=== PATIENT | female | born 1945 | race Caucasian/White ===

== ENCOUNTER 2018-05-28 09:01 | Outpatient (REF) | payer MEDICARE, BC, SELFPAY ==
[2018-05-28 12:35] LABS: Bilirubin Negative (Negative); Blood Moderate (Negative); Clarity Sl Cloudy; Glucose Negative (Negative); Ketones Negative (Negative); Leukocyte Esterase Small (Negative); Nitrite Negative (Negative); Urobilinogen 0.2 EU/dL (Up TO 0.2); pH 5.5 (5-8)
[2018-05-28 12:50] LABS: C & S Indicated? No/Sq. Contamination; Epithelial Cells Many HPF (Negative)
== END 2018-05-28 09:21 ==
LOC: LBN 09:01
PROVIDERS: PCP Nurse Practitioner Family; Visit Provider Nurse Practitioner Family
DX: R31.9 Hematuria, unspecified (principal)
CPT/HCPCS: 81003; 81015

== ENCOUNTER 2018-06-14 11:15 | Outpatient (CLI) | payer MEDICARE, BC, SELFPAY ==
[2018-06-14 11:58] LABS: Bilirubin Negative (Negative); Blood Small (Negative); Clarity Clear; Glucose Negative (Negative); Ketones Negative (Negative); Leukocyte Esterase Negative (Negative); Nitrite Negative (Negative); Specific Gravity 1.015 (1.005-1.025); Urobilinogen 0.2 EU/dL (Up TO 0.2); pH 6.5 (5-8)
[2018-06-14 12:16] LABS: Bacteria Few HPF (Negative); C & S Indicated? No/Sq. Contamination; Casts Negative LPF (Negative); Crystals Negative HPF (Negative); Epithelial Cells Moderate HPF (Negative); Mucus Negative (Negative); WBC 0-2 HPF (0-5)
== END 2018-06-14 11:35 ==
PROVIDERS: PCP Nurse Practitioner Family; Visit Provider Nurse Practitioner Family
DX: R31.9 Hematuria, unspecified (principal)
CPT/HCPCS: 81003; 81015

== ENCOUNTER 2018-06-26 00:39 | Outpatient (CLI) | payer MEDICARE, BC, SELFPAY ==
--- NOTE | 2018-06-26 11:59 | DI.CT_ITS ---
SYMPTOMS/DIAGNOSIS: MICROSCOPIC HEMATURIA, FURTHER EVALUATION, R31.29 CT SCAN OF THE ABDOMEN AND PELVIS; CT scan of the abdomen and pelvis was performed according to the CT urogram protocol. No priors for comparison. Noncontrast examination was performed. No nephrolithiasis, no ureterolithiasis is seen. No bladder stones are present. The gallbladder is negative by CT criteria. Following contrast administration, venous imaging was performed. There is mild scarring seen in the lung bases. The liver is normal in size. No suspicious hepatic masses are seen. The portal and superior mesenteric veins are patent. The gallbladder is negative. No biliary ductal dilatation is present. The pancreas, spleen and adrenal glands are unremarkable. The kidneys show normal and symmetric enhancement. No evidence of a solid renal mass or obstruction is identified. The urinary bladder is intact. The reproductive organs are grossly unremarkable. There is atherosclerosis of the abdominal aorta, but no aneurysmal dilatation is present. No significant abdominal or pelvic adenopathy , ascites or pneumoperitoneum is present. Note is made of a small fat- containing umbilical hernia. The bowel shows no evidence of obstruction or inflammation. There is a normal appendix visualized. There does appear to be a small hiatal hernia present. Degenerative changes are seen in the spine. [id number] images through the renal collecting system were performed. The distal left ureter is not visualized, but no obstructing mass or calculus is identified. The left ureter is of normal caliber and there is normal enhancement of the left kidney noted. The urinary bladder is intact. No filling defects are appreciated. IMPRESSION: 1. No evidence of nephrolithiasis, hydronephrosis or renal mass. 2. Nonvisualization of the distal left ureter, but no evidence of ureteral mass or calculus and no evidence of dilatation of the left renal collecting system. 3. No evidence of a bladder mass or calculus.
[2018-06-26 12:32] LABS: CREATININE 0.86 mg/dL (0.55-1.02)
[2018-06-26] MEDS: Omnipaque 350 MG/ML 100 ML BTL IJ (13:26)
== END 2018-06-26 00:59 ==
PROVIDERS: PCP Nurse Practitioner Family; Visit Provider Nurse Practitioner Family
DX: R31.29 Other microscopic hematuria (principal)
CPT/HCPCS: 36415; 74178; 82565; J3490

== ENCOUNTER → 2018-06-28 14:52 | Outpatient (BNVA) | payer MEDICARE, BC, SELFPAY | PROVIDERS: PCP Nurse Practitioner Family; Visit Provider Nurse Practitioner Gerontology | DX: R31.29 Other microscopic hematuria (principal); I10 Essential (primary) hypertension | CPT/HCPCS: 99203; 99214 ==

== ENCOUNTER → 2018-08-06 09:26 | Outpatient (BNVA) | payer MEDICARE, BC, SELFPAY | PROVIDERS: PCP Nurse Practitioner Family; Visit Provider Urology | DX: R69 Illness, unspecified (principal) ==

== ENCOUNTER 2018-08-23 07:26 | Day surgery (SDC) | payer MEDICARE, BC, SELFPAY ==
[2018-08-23 07:48] VITALS: BP 123/88; PULSE 61; RESP 16; TEMP 36.4; O2SAT 99
[2018-08-23] MEDS: Sulfameth/Trimeth DS TAB 1 TAB PO (08:12)
[2018-08-23] MEDS: Lactated Ringers 1,000 ML 80 ML IV (08:12)
--- NOTE | 2018-08-23 08:37 | W.PM.HP.N ---
Date of service: 08/23/18 Time of Service: 08:37 Assessment and Plan (1) Microscopic hematuria: Current visit: No Status: Chronic For cystoscopy and retrograde pyelogram History of Present Illness Chief Complaint: microscopic hematuria Narrative: This is a 73 year old woman who has a finding of microscopic hematuria. Her CT urogram showed no upper tract disease, but her ureters did not completely fill. She presents for cystoscopy with retrograde pyelogram to complete her hematuria workup. Review of Systems Constitutional Denies chills and Denies fever(s) Eyes Denies loss of vision Cardiovascular Denies chest pain, Denies syncope and Denies irregular heart rhythm Gastrointestinal Denies nausea and Denies vomiting Musculoskeletal Reports arthralgias Neurologic Denies syncope and Denies loss of vision Hematologic/Lymphatic Denies easy bleeding and Denies easy bruising PFSH Medical History Microscopic hematuria (Chronic) Hyperlipidemia, unspecified (Chronic) Migraine (Chronic) Hormone replacement therapy (HRT) (Chronic 10/20/11) Hypothyroidism, unspecified (Chronic 10/20/11) Essential hypertension (Chronic) Atopic dermatitis (Chronic 10/20/11) Calculus of right kidney (Resolved 06/02/16) Atopic dermatitis HTN (hypertension) Hormone replacement therapy (HRT) Hyperlipidemia Hypothyroidism Migraine Social History adopted: No caregiver/support person: No foster care: No number of children: 1 current occupational status: employed 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 [employer] pets and animals: Yes pets and animals: cat(s) frequency: daily duration: > 90 minutes/day Smoking/Tobacco Use Status: Never alcohol intake: never substance use type: does not use Meds Home Medications Medication Instructions Recorded Confirmed Type triamcinolone acetonide 1 sandrita TOPICAL TID PRN #1 script 09/11/13 08/23/18 History Atorvastatin Calcium 10 mg PO DAILY #90 tab-cap 11/20/17 08/23/18 Clinic levothyroxine 100 mcg PO DAILY #90 tab-cap 11/20/17 08/23/18 Rx promethazine 25 mg RC Q6H PRN #30 supp 11/27/17 08/23/18 Rx indomethacin [Indocin] 25 mg RC DAILY PRN #30 supp.rect 02/08/18 08/23/18 History amlodipine [Norvasc] 5 mg PO HS 08/16/18 08/23/18 History conjugated estrogens [Premarin] 0.3 mg PO .MON, MON, MON,Mon08/16/18 08/23/18 History medroxyprogesterone 2.5 mg PO .MON, MON, MON,Mon08/16/18 08/23/18 History Allergies Allergy/AdvReac Type Severity Reaction Status Date / Time No Known Allergies Allergy Unverified 08/23/18 06:52 Results Last Vital Signs Temp 36.4 C L 08/23/18 07:48 Pulse 61 08/23/18 07:48 Resp 16 08/23/18 07:48 BP 123/88 08/23/18 07:48 Pulse Ox 99 08/23/18 07:48
--- NOTE | 2018-08-23 08:39 | DI.RAD_ITS ---
SYMPTOM/DIAGNOSIS: HEMATURIA OR RETROGRADE: Fluoroscopy Time: 36.8 seconds The images submitted from the OR demonstrate a bilateral retrograde examination carried out by Dr. Porter. Contrast material is identified in the ureters and in the collecting system of both kidneys. No gross abnormality or gross obstruction is demonstrated. Please see Dr. Porter's procedure report for further information.
[2018-08-23] MEDS: Lidocaine 2% Jelly 6 ML SYR (09:07)
[2018-08-23] MEDS: Omnipaque 300 MG/ML 50 ML BTL (09:12)
--- NOTE | 2018-08-23 09:16 | W.PM.DSUDISC ---
Discharge Plan Disposition Patient Disposition: HOME Condition: Stable Discharge Details Reason For Visit: hematuria Attending Provider: Juan Porter Primary Care Provider: Silvana Srinivasan Home Meds and New Rx's Prescriptions: No Action triamcinolone acetonide 15 GM cream 1 sandrita Topical TID PRNQty: 1 RF: 5 Atorvastatin Calcium 10 MG tablet 10 mg PO DAILY Qty: 90 RF: 3 levothyroxine 100 MCG tablet 100 mcg PO DAILY Qty: 90 RF: 3 promethazine 25 MG suppository 25 mg RC Q6H PRN Qty: 30 RF: 6 Indocin 50 MG suppository 25 mg RC DAILY PRNQty: 30 RF: 3 amlodipine [Norvasc] 5 mg tablet 5 mg PO HS RF: 0 medroxyprogesterone 2.5 MG tablet 2.5 mg PO .MON, MON, MON,SUN RF: 0 Premarin 0.3 MG tablet 0.3 mg PO .MON, MON, MON,SUN RF: 0 Discharge Instructions Additional Instructions: F/U yearly for urinalysis (can be at our office or with PCP) Stand Alone Forms: [facility] ([facility]) Activity:: Activity as Tolerated Diet:: As Tolerated Discharge Orders Discharge Orders: Discharge Order (Routine); Ordered 08/23/18 Ordered By: Juan Porter Discharge Data Discharge Date/Time-TO BE ENTERED AT DEPARTURE: 08/23/18 10:05 DS: Diagnosis Discharge Diagnosis (1) Microscopic hematuria: Status: Chronic
[2018-08-23 09:50] VITALS: BP 130/82; PULSE 60; RESP 18; TEMP 37; O2SAT 98
[2018-08-23] MEDS: Phenazopyridine 200 MG TAB PO (10:00)
--- NOTE | 2018-08-23 17:43 | ROE_ITS ---
DATE OF OPERATION: August 23, 2018 PREOPERATIVE DIAGNOSIS: Microscopic hematuria. POSTOPERATIVE DIAGNOSIS: Microscopic hematuria. PROCEDURE: Cystoscopy, bilateral retrograde pyelogram. SURGEON: Juan Porter M.D. ANESTHESIA: MAC with local. COMPLICATIONS: None. FINDINGS: No significant uropathology. HISTORY: This is a 73-year-old woman who has a finding of microscopic hematuria. She had a CT scan with contrast but the distal left ureter did not fill completely. No significant pathology was demon strated in the upper tracts. She presents for cystoscopy with retrograde pyelogram to complete her h ematuria workup. OPERATIVE REPORT: The patient was brought to the Operating Room on 08/23/18. She was given monitore d anesthesia care and placed in the dorsal lithotomy position. Her genitalia was prepped and draped. A 22 Kazakh rigid cystoscope was passed through the urethra into the bladder. The urethra and bladde r were inspected using the 30-degree lens. Both ureteral orifices appeared normal. Each orifice was cannulated with a 6 Kazakh access catheter. Retrograde films were obtained by injecting Omnipaque through the access catheter under fluoroscopi c guidance. No filling defects were seen in either ureter or collecting system. Both sides drained promptly on 5 -minute drainage film. The remainder of the bladder was inspected using both a 30- and a 70-degree lens. No papillary or no dular lesions were seen. No stones were seen. Based on this examination, there is no significant uropathology identified. Our current recommendati on is a repeat urinalysis yearly and a repeat workup in three to five years if the hematuria persists . The patient tolerated this procedure well, with no complications.
== END 2018-08-23 10:05 | disposition home or self-care (01) ==
PROVIDERS: PCP Nurse Practitioner Family; Visit Provider Urology
PROC: (CPT 74450; principal; 2018-08-23 09:00)
DX: R31.29 Other microscopic hematuria (principal); I10 Essential (primary) hypertension
CPT/HCPCS: 52005; NC; 74420; Q9967

== ENCOUNTER 2018-11-24 00:22 | Outpatient (CLI) | payer MEDICARE, BC, SELFPAY ==
[2018-11-24 10:19] LABS: Anion Gap 7.8 mmol/L (3-11); BUN 19 mg/dL (7-18); CO2 30.2 mmol/L (21.0-32.0); Calcium 9.1 mg/dL (8.5-10.1); Chloride 104 mmol/L (98-107); Cholesterol 211 mg/dL (50-200); Glucose 88 mg/dL (70-100); HDL Cholesterol 66 mg/dL (40-60); LDL CHOLESTEROL 120 mg/dL (<100); Potassium 4.4 mmol/L (3.5-5.1); Sodium 142 mmol/L (136-145); TSH (W/Ref FT4) 0.15 uIU/mL (0.358-3.74); Triglyceride 130 mg/dL (30-150)
[2018-11-24 10:39] LABS: FREE T4 1.51 ng/dL (0.76-1.46)
[2018-11-26 10:56] LABS: Hepatitis C Ab w Rflx HCV PCR Negative (NEGAT)
== END 2018-11-24 00:42 ==
PROVIDERS: PCP Nurse Practitioner Family; Visit Provider Nurse Practitioner Family
DX: E78.5 Hyperlipidemia, unspecified (principal); E03.9 Hypothyroidism, unspecified; I10 Essential (primary) hypertension; Z11.59 Encounter for screening for other viral diseases
CPT/HCPCS: 36415; 80048; 80061; 83721; 86803; 84439; 84443

== ENCOUNTER 2018-11-26 14:49 | Outpatient (REF) | payer MEDICARE, BC, SELFPAY | END 2018-11-26 15:09 | LOC: LBN 14:49 | PROVIDERS: PCP Nurse Practitioner Family; Visit Provider Nurse Practitioner Family | DX: R30.0 Dysuria (principal) | CPT/HCPCS: 87077; 87086; 87186 ==

== ENCOUNTER 2019-05-29 02:14 | Outpatient (CLI) | payer MEDICARE, BC, SELFPAY ==
[2019-05-29 13:03] LABS: TSH (W/Ref FT4) 0.08 uIU/mL (0.36-3.74)
[2019-05-29 13:22] LABS: FREE T4 1.32 ng/dL (0.76-1.46)
== END 2019-05-29 02:34 ==
PROVIDERS: PCP Nurse Practitioner Family; Visit Provider Nurse Practitioner Family
DX: E03.9 Hypothyroidism, unspecified (principal)
CPT/HCPCS: 36415; 84439; 84443

== ENCOUNTER 2019-08-17 00:40 | Outpatient (CLI) | payer MEDICARE, BC, SELFPAY ==
[2019-08-17 12:14] LABS: BUN 19 mg/dL (7-18); CREATININE 0.91 mg/dL (0.55-1.02); Calculated LDL 118 mg/dL; Chloride 104 mmol/L (98-107); Cholesterol 217 mg/dL (<200); Glucose 102 mg/dL (74-106); HDL Cholesterol 67 mg/dL (40-60); Potassium 4.3 mmol/L (3.5-5.1); Sodium 144 mmol/L (136-145); TSH (W/Ref FT4) 2.51 uIU/mL (0.36-3.74); Triglyceride 163 mg/dL (<150)
== END 2019-08-17 01:00 ==
PROVIDERS: PCP Nurse Practitioner Family; Visit Provider Nurse Practitioner Family
DX: I10 Essential (primary) hypertension (principal); E78.5 Hyperlipidemia, unspecified; E03.9 Hypothyroidism, unspecified; Z13.1 Encounter for screening for diabetes mellitus
CPT/HCPCS: 36415; 80048; 80061; 84443

== ENCOUNTER 2020-01-27 02:01 | Outpatient (CLI) | payer MEDICARE, BC, SELFPAY ==
--- NOTE | 2020-01-27 07:54 | DI.MAMMO_ITS ---
EXAM: MG MAMMO SCREENING CLINICAL HISTORY: screening,z12.39 TECHNIQUE: Mammograms were interpreted according to the usual protocol including computer analysis w [employer] CAD system, tomosynthesis and C-view imaging. COMPARISON: FINDINGS: The breasts are heterogeneously dense. No dominant mass or clumped microcalcification is identified in either breast. Current examination is compared with prior studies including June 2017 and the re has been no gross interval change appearance comparison with the previous examinations. IMPRESSION: No specific evidence of malignancy at this time. Routine screening examinations are suggested at yea rly intervals due to the family history of breast carcinoma. BI-RADS Cat 1 - Negative Breast Density - Category C - Heterogeneously dense
== END 2020-01-27 02:21 ==
PROVIDERS: PCP Nurse Practitioner Family; Visit Provider Nurse Practitioner Family
DX: Z12.31 Encounter for screening mammogram for malignant neoplasm of breast (principal); Z80.3 Family history of malignant neoplasm of breast
CPT/HCPCS: 77063; 77067

== ENCOUNTER 2020-01-29 02:09 | Outpatient (CLI) | payer MEDICARE, BC, SELFPAY ==
--- NOTE | 2020-01-29 10:30 | DI.US_ITS ---
EXAM: US SOFT TISSUE HEAD OR NECK CLINICAL HISTORY: Recurrent lymph node, lymphadenopathy of lt cervical region, R59.0 TECHNIQUE: Ultrasound performed using standard protocol. COMPARISON: US RENAL ULTRASOUND(P) from 05/25/2016 FINDINGS: Soft tissue ultrasound of the lateral left cervical region was performed to evaluate question of palp able abnormality. The palpable abnormality appears to correspond with a lymph node measuring about 1 0 x 7 x 2 millimeters in diameter with unremarkable morphology. No additional mass identified. IMPRESSION: The palpable abnormality of left cervical region appears to correspond with a normal-appearing lymph node. DATA REPOSITORY:
== END 2020-01-29 02:29 ==
PROVIDERS: PCP Nurse Practitioner Family; Visit Provider Family Medicine
DX: R59.0 Localized enlarged lymph nodes (principal); R22.1 Localized swelling, mass and lump, neck
CPT/HCPCS: 76536

== ENCOUNTER 2020-01-29 02:56 | Outpatient (CLI) | payer MEDICARE, BC, SELFPAY ==
[2020-01-29 10:55] LABS: Abs Immature Grans 0.01 k/cumm (0.0-0.09); Absolute Basophil Count 0.01 k/cumm (0.0-0.2); Absolute Eosinophil Count 0.12 k/cumm (0.0-0.7); Absolute Lymphocyte Count 2.14 k/cumm (1.2-3.4); Absolute Monocyte Count 0.72 k/cumm (0.11-0.7); Absolute Neutrophil Count 4.69 k/cumm (1.2-6.7); Basophils % 0.1; Eosinophils % 1.6; HCT 44.7 % (36.0-46.0); Immature Grans % 0.1 %; Lymphocytes % 27.8; Mean Corp. HGB Concentration 33.6 g/dL (32.0-36.0); Mean Corpuscular Hemoglobin 30.9 pg (27.0-33.0); Mean Corpuscular Volume 92.2 fL (80-95); Mean Platelet Volume 10.9 fL (8.0-11.0); Monocytes % 9.4; Platelet Count 199 x1000/uL (130-400); RBC 4.85 m/cumm (4.00-5.20); RBC Distribution Width 13.3 % (11.7-14.6); White Blood Cell Count 7.69 k/cumm (4.4-10.8)
[2020-01-29 11:28] LABS: ESR 21 mm/hr (0-30)
== END 2020-01-29 03:16 ==
PROVIDERS: PCP Nurse Practitioner Family; Visit Provider Family Medicine
DX: R59.0 Localized enlarged lymph nodes (principal); R22.1 Localized swelling, mass and lump, neck
CPT/HCPCS: 36415; 76536; 85652; 85025

== ENCOUNTER 2020-09-07 02:51 | Outpatient (CLI) | payer MEDICARE, BC, SELFPAY ==
[2020-09-07 10:20] LABS: ALT 36 U/L (14-59); AST 22 U/L (15-37); Albumin 4.1 g/dL (3.4-5.0); Alkaline Phosphatase 102 U/L (46-116); Anion Gap 5.5 mmol/L (3-11); BUN 14 mg/dL (7-18); Bilirubin, Total 0.7 mg/dL (0.2-1.0); CO2 30.5 mmol/L (21.0-32.0); CREATININE 0.81 mg/dL (0.55-1.02); Calcium 8.9 mg/dL (8.5-10.1); Calculated LDL 146 mg/dL (<100); Chloride 103 mmol/L (98-107); Cholesterol 241 mg/dL (<200); Glucose 95 mg/dL (74-106); HDL Cholesterol 68 mg/dL (40-60); Potassium 4.2 mmol/L (3.5-5.1); Sodium 139 mmol/L (136-145); TSH (W/Ref FT4) 3.07 uIU/mL (0.36-3.74); Total Protein 7.5 g/dL (6.4-8.2); Triglyceride 136 mg/dL (<150)
== END 2020-09-07 03:11 ==
PROVIDERS: PCP Nurse Practitioner Family; Visit Provider Nurse Practitioner Family
DX: E03.9 Hypothyroidism, unspecified (principal); E78.5 Hyperlipidemia, unspecified; I10 Essential (primary) hypertension; Z13.1 Encounter for screening for diabetes mellitus
CPT/HCPCS: 36415; 80053; 80061; 84443

== ENCOUNTER 2021-06-01 16:31 | Outpatient (REF) | payer MEDICARE, BC, SELFPAY | END 2021-06-01 16:32 | disposition home or self-care (01) | LOC: LBN 16:31 | PROVIDERS: PCP Nurse Practitioner Family; Visit Provider Student in an Organized Health Care Education/Training Program | DX: R35.0 Frequency of micturition (principal); R39.9 Unspecified symptoms and signs involving the genitourinary system | CPT/HCPCS: 87086 ==

== ENCOUNTER 2021-10-08 16:32 | Outpatient (REF) | payer MEDICARE, BC, SELFPAY ==
[2021-10-08 20:54] LABS: Bacteria Many HPF (Negative); C & S Indicated? Yes; Casts Negative LPF (Negative); Crystals Negative HPF (Negative); Epithelial Cells Few HPF (Negative); Mucus Negative (Negative); WBC >50 HPF (0-5)
== END 2021-10-08 16:33 | disposition home or self-care (01) ==
LOC: LBN 16:32
PROVIDERS: PCP Nurse Practitioner Family; Visit Provider Nurse Practitioner Family
DX: R31.29 Other microscopic hematuria (principal)
CPT/HCPCS: 87077; 81015; 87086; 87186

== ENCOUNTER 2021-10-13 02:36 | Outpatient (CLI) | payer MEDICARE, BC, SELFPAY ==
[2021-10-13 08:49] LABS: Anion Gap 7.4 mmol/L (3-11); BUN 21 mg/dL (7-18); CO2 28.6 mmol/L (21.0-32.0); CREATININE 0.9 mg/dL (0.55-1.02); Calcium 8.6 mg/dL (8.5-10.1); Calculated LDL 118 mg/dL (<100); Chloride 106 mmol/L (98-107); Cholesterol 195 mg/dL (<200); Glucose 92 mg/dL (74-106); HDL Cholesterol 56 mg/dL (40-60); Potassium 4.3 mmol/L (3.5-5.1); Sodium 142 mmol/L (136-145); TSH (W/Ref FT4) 3.91 uIU/mL (0.36-3.74); Triglyceride 106 mg/dL (<150)
[2021-10-13 09:21] LABS: FREE T4 1.14 ng/dL (0.76-1.46)
== END 2021-10-13 02:37 | disposition home or self-care (01) ==
LOC: LBO 02:36
PROVIDERS: PCP Nurse Practitioner Family; Visit Provider Nurse Practitioner Family
DX: I10 Essential (primary) hypertension (principal); E78.5 Hyperlipidemia, unspecified; E03.9 Hypothyroidism, unspecified
CPT/HCPCS: 36415; 80048; 80061; 84439; 84443

== ENCOUNTER 2021-11-15 12:54 | Outpatient (REF) | payer MEDICARE, BC, SELFPAY ==
[2021-11-15 14:51] LABS: Bilirubin Negative (Negative); Blood Moderate (Negative); Clarity Clear (Clear); Glucose Negative (Negative); Ketones Negative (Negative); Leukocyte Esterase Trace (Negative); Nitrite Negative (Negative); Specific Gravity >= 1.030 (1.005-1.025); Urobilinogen 0.2 EU/dL (Up TO 0.2)
[2021-11-15 15:05] LABS: Bacteria Negative HPF (Negative); C & S Indicated? No; Casts Negative LPF (Negative); Crystals Negative HPF (Negative); Epithelial Cells Few HPF (Negative); Mucus Trace (Negative)
== END 2021-11-15 12:55 | disposition home or self-care (01) ==
LOC: LBN 12:54
PROVIDERS: PCP Nurse Practitioner Family; Visit Provider Nurse Practitioner Family
DX: N39.0 Urinary tract infection, site not specified (principal)
CPT/HCPCS: 81003; 81015

== ENCOUNTER 2022-05-24 11:43 | Emergency (ER) | payer MEDICARE, BC, SELFPAY ==
[2022-05-24] VITALS (12 sets, daily range): BP systolic 122–161; BP diastolic 73–90; PULSE 57–77; RESP 15–25; TEMP 36.5; O2SAT 98
--- NOTE | 2022-05-24 11:30 | RT.EKG_ITS ---
APPROVED REPORT Exam: Resting ECG Reason for Exam: chest pressure Patient Location: E HR:67 bpm ECG Measurements Heart Rate 67 AXIS MO 143 P 45 QRSd 99 QRS -40 QT 437 T 59 QTc 462 Conclusion Sinus rhythm.. Left axis deviation..
--- NOTE | 2022-05-24 12:10 | ED.GENADUL_ITS ---
Discharge Plan Disposition Patient Disposition: HOME Condition: Improving Discharge Details Clinical Impression: Atypical chest pain Primary Care Provider: Silvana Srinivasan ED Provider: Braden Rockwell Home Meds and New Rx's Prescriptions: Continued promethazine 25 mg suppository 25 mg CO Q6H PRN Qty: 30 6RF atorvastatin 20 mg tablet 20 mg PO DAILY Qty: 90 3RF amlodipine [Norvasc] 5 mg tablet 5 mg PO DAILY Qty: 90 3RF Indocin 50 mg suppository 25 mg CO DAILY PRN (Reason: migraine headache) Qty: 60 3RF levothyroxine 75 mcg tablet 75 mcg PO DAILY Qty: 90 3RF Rx Instructions: Administer in the morning on an empty stomach, at least 30-60 minutes before food Discharge Instructions Instructions: Chest Pain (ED) Additional Instructions: Your work-up in the emergency department today included laboratories with a cardiac troponin that was negative, EKG and chest x-ray. As we discussed, an outpatient stress test can complete the work-up initiated in the emergency department. We will ask our care managers to make you a follow- up in clinic for recheck. Continue your routine medications. Resume normal routine and activities. Return if you have increasing discomfort, develop shortness of breath, fever, or any other acute concerns. Medical Decision Making This is a pleasant and delightful 77-year-old female who presents from home complaining of 2 weeks of intermittent episodes of anterior chest pressure. States at times it seems to radiate to her neck. There are no exacerbating or ameliorating factors. It did seem to begin prior to her going to [place] for a trip for which she returned on a overseas flight on Monday. She denies having lower extremity pain or swelling and denies shortness of breath. No upper respiratory illness. Patient arrives to the ER interactive and in no acute distress. Vital signs are normal including 98% oxygen on room air. Differential diagnosis includes atypical chest discomfort, ACS, must exclude PE given her recent immobilization. Patient had screening laboratories obtained, referred for EKG, chest x-ray. Diagnostic studies: Age-adjusted D-dimer is normal at 625. Chemistries are reassuring but note BUN 24 and creatinine 1.2 which are elevated somewhat over baseline. CBC is unremarkable. Troponin is negative. Chest x-ray no acute disease. Patient states she feels improved and request discharge to home. Do not feel further acute work-up is indicated. She certainly may benefit from outpatient stress testing. She will follow-up with her primary care physician. HPI General Mode of arrival: ambulatory . Date/Time Provider Initiated Documentation: 05/24/22 11:55 . Limitations to Documentation: no limitations . Information obtained by: patient . History of Present Illness 77 year old F presents to the emergency department with the chief complaint of 2 weeks intermittent anterior chest pain, described as mild, Quality is described as other (pressure), and is localized to the chest. Patient started experiencing this day(s) and it has been intermittent. No relieving factors improve symptom(s), No exacerbating factors reported . Patient notes denies cough, fever/chills, loss of appetite, nausea/vomiting, shortness of breath, syncope and weakness. Patient did receive the following treatments prior to arrival, none Related Data Home Medications Medication Instructions Recorded Confirmed promethazine 25 mg rectal 25 mg CO Q6H PRN #30 supp 06/07/21 05/24/22 suppository amlodipine 5 mg tablet (Norvasc) 5 mg PO DAILY #90 tab-caps 11/12/21 05/24/22 atorvastatin 20 mg tablet 20 mg PO DAILY #90 tab-caps 11/12/21 05/24/22 indomethacin 50 mg rectal 25 mg CO DAILY PRN migraine 12/08/21 05/24/22 suppository (Indocin) headache #60 ea levothyroxine 75 mcg tablet 75 mcg PO DAILY #90 tab-caps 05/11/22 05/24/22 Previous Rx's Medication Instructions Recorded promethazine 25 mg rectal 25 mg CO Q6H PRN #30 supp 06/07/21 suppository amlodipine 5 mg tablet (Norvasc) 5 mg PO DAILY #90 tab-caps 11/12/21 atorvastatin 20 mg tablet 20 mg PO DAILY #90 tab-caps 11/12/21 indomethacin 50 mg rectal 25 mg CO DAILY PRN migraine 12/08/21 suppository (Indocin) headache #60 ea levothyroxine 75 mcg tablet 75 mcg PO DAILY #90 tab-caps 05/11/22 Allergies Allergy/AdvReac Type Severity Reaction Status Date / Time No Known Allergies Allergy Verified 05/24/22 11:53 General Stated Complaint: Chest Pain MANN: 2 Review of Systems Narrative: No leg pain or swelling. Took an overseas flight from [place] 2 days ago. No fever, chills, cough. 7 systems were reviewed and otherwise negative. PFSH All Active Problems (Updated 05/24/22 @ 14:05 by Braden Rockwell MD) Atypical chest pain (Acute) Microscopic hematuria (Chronic) 06/26/2018 abd/pelvic CT: WNL; 08/23/2018 cystoscopy: no significant uropathology --> recommend annual UA and repeat workup in 3-5 years if hematuria persists Hyperlipidemia, unspecified (Chronic) Baseline LDL 223; 10/2018 labs: LDL not at goal, increased to atorva 20 mg; 08/2020 labs: still not at goal, query to pt about taking statin? Migraine (Chronic) Hypothyroidism, unspecified (Chronic 10/20/11) Essential hypertension (Chronic) Atopic dermatitis (Chronic 10/20/11) Medical History Calculus of right kidney (06/02/16) 06/26/2018 abd/pelvic CT: no evidence of nephro or ureterolithiasis Hormone replacement therapy (HRT) (10/20/11) Social History Smoking/Tobacco Use Status: Never Smoking risk assessment performed?: Yes Alcohol Intake: never Drug use: Never Substance use type: does not use Adopted: No Caregiver/Support person: No Foster care: No Household members: spouse Housing: house Number of Children: 1 Communication Needs: None Education Level: college Details: Bachelor's Do you need help understanding health information?: Never 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, 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 Pets and animals: Yes Pets and animals: cat(s) Sexually active: No Do you think of yourself as: straight/heterosexual Current gender identity: female What is your relationship status?: How often do you talk on the phone with friends or family?: three or more times per week How often do you get together with friends or relatives?: three or more times per week Panel score (0-1 are the most socially isolated patients): 2 What type of physical activity do you participate in: walking and other Details: Gardening, outside work Duration: 15-30 minutes/day Frequency: 5-6 times per week Lay/Shinto: Roman Catholic Seatbelt use: always Drive intox or ride w/intox route salesman and driver: No Do you feel safe at home: Yes Do you feel safe in your relationship?: Yes Exam Narrative Exam Narrative: GEN: awake, alert, oriented 3. Pleasant, well groomed, interactive. HEAD: Normocephalic, atraumatic ENT: Mucous membranes moist, oropharynx unremarkable, External ear exam unremarkable EYES: PERRL, EOMI NECK: Full ROM, no CASSANDRA, no menigismus CHEST/RESP: Nontender, clear to auscultation bilateral, no wheeze/rhonchi/rales CARDIOVASCULAR: RRR, no murmur, rub kelsey. 2+ Rad pulse bilateral ABDOMEN: Soft, nontender, no mass. +Bowel sounds EXT: Full ROM, no edema, no rash Neuro: Grossly normal neurologic exam, conversant, interactive. Psych: Speech fluent, thoughts congruent, affect normal Course Vital Signs Vital signs: Vital Signs Temperature 36.5 C 05/24/22 11:45 Pulse 69 05/24/22 11:45 Respiratory Rate 20 05/24/22 11:45 Blood Pressure 131/87 05/24/22 11:45 Pulse Oximetry 98 05/24/22 11:45 Temperature 36.5 C 05/24/22 11:45 Temperature Source Oral 05/24/22 11:45 Pulse 69 05/24/22 11:45 Respiratory Rate 17 05/24/22 12:04 Respiratory Effort Non-Labored 05/24/22 12:04 Respiratory Depth Normal 05/24/22 12:04 Respiratory Pattern Normal 05/24/22 12:04 Blood Pressure 131/87 05/24/22 11:45 Blood Pressure Position Supine 05/24/22 11:45 Pulse Oximetry 98 05/24/22 11:45 Oxygen Delivery Method Room Air 05/24/22 11:45 Oxygen Flow Rate 0 05/24/22 11:45 Pain Level 1 05/24/22 11:45 Comment 05/24/22 11:45
[2022-05-24 12:23] LABS: Abs Immature Grans 0.02 10^3/uL (0.0-0.06); Absolute Basophil Count 0.03 10^3/uL (0.0-0.2); Absolute Lymphocyte Count 2.24 10^3/uL (1.2-3.4); Absolute Monocyte Count 0.69 10^3/uL (0.1-0.8); Basophils % 0.3; Eosinophils % 2.2; HCT 44.1 % (36.0-46.0); HGB 14.8 g/dL (11.2-15.7); Immature Grans % 0.2; Lymphocytes % 24.1; MCH 30.8 pg (27.0-33.0); MCHC 33.6 % (32.0-36.0); MCV 92 fL (80-95); MPV 11.4 fL (8.0-11.0); Monocytes % 7.4; Neutrophils % 65.8; Platelet Count 182 10^3/uL (130-400); RDW-SD 44.4 fL; WBC 9.28 10^3/uL (4.4-10.8)
[2022-05-24 12:41] LABS: ALT 33 U/L (14-59); AST 25 U/L (15-37); Albumin 4.2 g/dL (3.4-5.0); Alkaline Phosphatase 102 U/L (46-116); Anion Gap 8.7 mmol/L (3-11); BUN 24 mg/dL (7-18); Bilirubin, Total 0.5 mg/dL (0.2-1.0); CO2 28.3 mmol/L (21.0-32.0); CREATININE 1.2 mg/dL (0.55-1.02); Calcium 9.1 mg/dL (8.5-10.1); Chloride 102 mmol/L (98-107); Estimated GFR 46.62 (mL/min/1.73m2); Glucose 87 mg/dL (74-106); Potassium 3.7 mmol/L (3.5-5.1); Sodium 139 mmol/L (136-145); Troponin I < 50 ng/L (<or=60)
[2022-05-24 12:54] LABS: D-Dimer 625 ng/mlFEU (<500)
--- NOTE | 2022-05-24 13:28 | DI.RAD_ITS ---
Exam(s) XR CHEST 2V PA LATERAL EXAM: XR CHEST 2V PA LATERAL CLINICAL HISTORY: anterior chest pain TECHNIQUE: 2D digital imaging was performed of the chest. Two images were obtained. PA and lateral views were obtained. COMPARISON: No exams were available for comparison FINDINGS: MEDIASTINUM: Normal. HEART: Normal. PULMONARY VASCULATURE: Normal. LUNGS: Clear. PLEURAL SPACE: No pleural effusion or pneumothorax. BONE:Within normal limits for the patient's age. OTHER FINDINGS:Normal. IMPRESSION: No acute pulmonary findings. DATA REPOSITORY: RADIATION DOSE DELIVERED:
--- NOTE | 2022-05-24 14:09 | NUR.NOTE ---
Nursing Note: Referral faxed to PCP for chest pain in 1 week.
== END 2022-05-24 14:26 | disposition home or self-care (01) ==
PROVIDERS: Emergency Provider Emergency Medicine; PCP Nurse Practitioner Family
DX: R07.89 Other chest pain (principal)
CPT/HCPCS: 36415; 80053; 93005; 99284; 71046; 83735; 84484; 85025; 85379; 93010; 99285

== ENCOUNTER → 2022-06-02 01:16 | Outpatient (CLI) | payer MEDICARE, BC, SELFPAY ==
--- NOTE | 2022-06-02 15:00 | ETT_ITS ---
APPROVED REPORT Exam: Exercise Treadmill Patient Location: Out-Patient Room/Bed: Stress Nurse: Rut Floyd RN Ordering Provider:ARCHIE PRETTY, Contact Number: [phone] BMI: 21.78 Baseline Rhythm: Sinus Rhythm Comment: t wave inversion in aVL and V2 Indications: chest pain, r/o ischemia Medical History Medical History: left carotid bruit, atypical chest pain, HLD, HTN, hypothyroidism Cardiac Medications: Atorvastatin, Amlodipine, Norvasc Allergies: None Cardiac Risk Factors: +family history, HTN, HLD Previous Cardiac Procedures: None Pretest Chest Pain Characteristics: None Exercise History: Physically active Physical Disabilities: None Lung Sounds: Clear Heart Sounds: REgular Stress Test Details Test: Exercise stress testing was performed using a Jacob protocol. Rest Stress HR Resting HR Supine: 62 bpm Max Heart Rate (APMHR): 143 bpm Resting HR Standin bpm Target HR (85% APMHR): 121 bpm Max HR Achieved: 143 bpm % of APMHR: 100 Recovery HR: 72 bpm HR response to stress: Normal HR response to stress BP Resting BP Supine: 126/80 mmHg Resting BP Standin/80 mmHg Max BP: 150/90 mmHg Recovery BP: 120/80 mmHg BP response to stress: Normal blood pressure response to stress. ECG Resting ECG: Sinus Rhythm Ectopy: None Comment: T wave inversion in aVL, V2 Stress ECG: Sinus Tachycardia ST Change: Horizontal ST depression Lead(s): II, III, aVF, V4, V5 Stage: [address] Deviation: 0.5-1 mm Arrhythmia: PAC's Recovery ECG: Sinus Rhythm Recovery ST Change: ST changes returned to baseline around 1 minute recovery Recovery Arrhythmia: PAC's Clinical Reason for Termination: Target HR Achieved, stopped due to treadmill safety concerns Stress Symptoms: None Exercise duration: 6 min43 sec Highest Stage Reached: Stage 3: 3.4 mph at 14% grade. Exercise capacity: 8.15 METs Angina Score: None Dennis Treadmill Score: 4.5 Rate Pressure Product: [id number] Stress ECG Conclusion 1. The resting electrocardiogram showed minor nondiagnostic ST depression 2. Patient exercised on the Jacob protocol and completed a workload of 8.15 METS 3. Normal heart rate and blood pressure response to exercise. Peak heart rate was 100% of predicted for age 4. There was no electrocardiographic evidence of myocardial ischemia 5. There were no significant dysrhythmias Dennis Treadmill Score is 4.5 which is Moderate risk. Stress Test Summary STAGE Time (mins) Speed (mph) Grade (%) HR BP SpO2 SYMPTOMS METS Supine 62 126/80 Standing 74 110/80 1 3 1.7 10 118 130/80 4.5 2 6 2.5 12 130 7 3 9 3.4 14 135 10 1 min recovery 112 150/90 3 min recovery 82 130/80 6 min recovery 72 120/80
== END ==
PROVIDERS: PCP Nurse Practitioner Family; Visit Provider Nurse Practitioner Family
DX: R07.89 Other chest pain (principal); R09.89 Other specified symptoms and signs involving the circulatory and respiratory systems
CPT/HCPCS: 93016; 93018; 93017

== ENCOUNTER → 2022-06-21 01:34 | Outpatient (CLI) | payer MEDICARE, BC, SELFPAY ==
--- NOTE | 2022-06-21 06:30 | DI.US_ITS ---
Exam(s) US CAROTID EXAM: US CAROTID CLINICAL HISTORY: r/o stenosis,lt carotid bruit, r09.89. TECHNIQUE: Ultrasound carotids performed using grayscale, color-flow, and spectral Doppler imaging. COMPARISON: US US SOFT TISSUE HEAD OR NECK from 01/29/2020 FINDINGS: CAROTID ARTERIES: There is some plaque noted bilaterally at the level the carotid bulbs and proximal internal carotid arteries, mild on the right and more prominent on the left side. However, there are no significantly elevated velocities, indicating less than 50 percent stenosis on either side. VERTEBRAL ARTERIES: Antegrade flow was demonstrated in both vertebral arteries. Measurements: R Bulb: 52.9cm/s PS / 14.1cm/s ED R CCA: 80cm/s PS / 23.1cm/s ED R ECA: 105.4cm/s PS / 20.4cm/s ED R ICA Prox: 47.1cm/s PS / 16.9cm/s ED R ICA Mid: 55.3cm/s PS / 23.4cm/s ED R ICA Distal: 67.3cm/s PS /28.1cm/s ED R Vert: 27.1cm/s PS / 11.7cm/s ED R SVR: 0.8 R DVR: 1.2 L Bulb: 83.9cm/s PS / 28.3cm/s ED L CCA: 77.5cm/s PS / 25cm/s ED L ECA: 65.2cm/s PS / 15.1cm/s ED L ICA Prox: 57.5cm/s PS / 23.8cm/s ED L ICA Mid: 66cm/s PS / 25.9cm/s ED L ICA Distal: 53.8cm/s PS / 25.7cm/s ED L Vert: 39cm/s PS / 14.9cm/s ED L SVR: 1.1 L DVR: 1.1 IMPRESSION: 1. Plaque at the level of both carotid bulbs and proximal internal carotid arteries, more prominent on left side. However, the non elevated velocities indicate that the amount of stenosis is less than 50 percent. 2. Antegrade flow demonstrated in both vertebral arteries in the neck. Criteria for Carotid Stenosis: Normal: ICA PSV <125 cm/s no plaque or intimal thickening is visible. <50% stenosis: ICA PSV <125 cm/s and plaque or intimal thickening is visible. 50-69% stenosis: ICA PSV is 125-250 cm/s and plaque is visible. >70% stenosis to near occlusion: ICA PSV >250 cm/s with visible plaque and luminal narrowing. DATA REPOSITORY:
== END ==
PROVIDERS: PCP Nurse Practitioner Family; Visit Provider Nurse Practitioner Family
DX: R07.89 Other chest pain (principal); R09.89 Other specified symptoms and signs involving the circulatory and respiratory systems
CPT/HCPCS: 93880

== ENCOUNTER 2022-10-14 16:10 | Outpatient (REF) | payer MEDICARE, BC, SELFPAY ==
[2022-10-14 18:49] LABS: Bacteria Many HPF (Negative); C & S Indicated? Yes; Crystals Negative HPF (Negative); Epithelial Cells Rare HPF (Negative); Mucus Negative (Negative); Other Cells Rare Renal (Negative); RBC 0-2 HPF (0-2)
== END 2022-10-14 16:11 | disposition home or self-care (01) ==
LOC: LBN 16:10
PROVIDERS: PCP Nurse Practitioner Family; Referring Provider Nurse Practitioner Family; Visit Provider Nurse Practitioner Family
DX: R31.29 Other microscopic hematuria (principal)
CPT/HCPCS: 87077; 81015; 87086; 87186

== ENCOUNTER 2022-10-31 03:02 | Outpatient (CLI) | payer MEDICARE, BC, SELFPAY ==
[2022-10-31 09:40] LABS: Bilirubin Negative (Negative); Blood Moderate (Negative); Clarity Clear (Clear); Glucose Negative (Negative); Ketones Negative (Negative); Leukocyte Esterase Moderate (Negative); Nitrite Negative (Negative); Urobilinogen 0.2 mg/dL (Up to 0.2)
[2022-10-31 09:51] LABS: Bacteria Moderate HPF (Negative); C & S Indicated? No/Sq. Contamination; Casts Negative LPF (Negative); Crystals Negative HPF (Negative); Epithelial Cells Moderate HPF (Negative); Mucus Trace (Negative)
[2022-10-31 10:28] LABS: Anion Gap 7.7 mmol/L (3-11); BUN 23 mg/dL (7-18); CO2 30.3 mmol/L (21.0-32.0); CREATININE 0.9 mg/dL (0.55-1.02); Calcium 9.3 mg/dL (8.5-10.1); Calculated LDL 188 mg/dL (<100); Chloride 103 mmol/L (98-107); Cholesterol 290 mg/dL (<200); Estimated GFR 65.84 (mL/min/1.73m2); Glucose 100 mg/dL (74-106); HDL Cholesterol 60 mg/dL (40-60); Potassium 4.1 mmol/L (3.5-5.1); Sodium 141 mmol/L (136-145); TSH (W/Ref FT4) 6.26 uIU/mL (0.36-3.74); Triglyceride 214 mg/dL (<150)
[2022-10-31 10:57] LABS: FREE T4 0.81 ng/dL (0.76-1.46)
== END 2022-10-31 03:03 | disposition home or self-care (01) ==
LOC: LBO 03:02
PROVIDERS: PCP Nurse Practitioner Family; Visit Provider Nurse Practitioner Family
DX: E03.9 Hypothyroidism, unspecified (principal); E78.5 Hyperlipidemia, unspecified; R31.29 Other microscopic hematuria; I10 Essential (primary) hypertension
CPT/HCPCS: 36415; 80048; 80061; 81003; 81015; 84439; 84443

== ENCOUNTER 2022-11-21 13:20 | Outpatient (REF) | payer MEDICARE, BC, SELFPAY ==
[2022-11-21 13:41] LABS: Bilirubin Negative (Negative); Blood Small (Negative); Clarity Clear (Clear); Glucose Negative (Negative); Ketones Negative (Negative); Leukocyte Esterase Moderate (Negative); Nitrite Negative (Negative); Specific Gravity 1.015 (1.005-1.025); Urobilinogen 0.2 mg/dL (Up to 0.2); pH 6.5 (5-8)
[2022-11-21 13:49] LABS: Bacteria Few HPF (Negative); C & S Indicated? Yes; Casts Negative LPF (Negative); Crystals Negative HPF (Negative); Epithelial Cells Few HPF (Negative); Mucus Negative (Negative); Other Cells Few Renal (Negative); WBC 20-50 HPF (0-5)
== END 2022-11-21 13:21 | disposition home or self-care (01) ==
LOC: NCHCN 13:20
PROVIDERS: PCP Nurse Practitioner Family; Visit Provider Nurse Practitioner Family
DX: R31.29 Other microscopic hematuria (principal)
CPT/HCPCS: 87077; 81003; 81015; 87086; 87186

== ENCOUNTER 2023-01-18 15:48 | Outpatient (REF) | payer MEDICARE, BC, SELFPAY ==
[2023-01-18 19:55] LABS: Bilirubin Negative (Negative); Blood Moderate (Negative); Clarity Clear (Clear); Glucose Negative (Negative); Ketones Negative (Negative); Leukocyte Esterase Moderate (Negative); Nitrite Negative (Negative); Urobilinogen 0.2 mg/dL (Up to 0.2); pH 5.5 (5-8)
[2023-01-18 20:08] LABS: Bacteria Few HPF (Negative); C & S Indicated? Yes; Casts Negative LPF (Negative); Crystals Negative HPF (Negative); Epithelial Cells Rare HPF (Negative); Mucus Negative (Negative); Other Cells Rare Transitional (Negative); WBC 20-50 HPF (0-5)
== END 2023-01-18 15:49 | disposition home or self-care (01) ==
LOC: LBN 15:48
PROVIDERS: PCP Nurse Practitioner Family; Referring Provider Nurse Practitioner Family; Visit Provider Nurse Practitioner Family
DX: R31.29 Other microscopic hematuria (principal)
CPT/HCPCS: 87077; 81003; 81015; 87086; 87186

== ENCOUNTER 2023-02-08 02:41 | Outpatient (CLI) | payer MEDICARE, BC, SELFPAY ==
--- NOTE | 2023-02-08 08:00 | DI.MAMMO_ITS ---
Exam(s) MAMMO SCREENING EXAM: MAMMO SCREENING CLINICAL HISTORY: screening,Z12.39. TECHNIQUE: Bilateral full field digital CC and MLO mammographic images were obtained with 3D tomosyn thesis and utilizing computer aided detection (CAD). COMPARISON: Prior mammograms were reviewed. FINDINGS: Fibroglandular tissue pattern is again noted be moderately dense which somewhat decreases the sensiti vity of the mammogram for finding hidden underlying lesions. There are no new spiculated masses nor malignant appearing microcalcification groups. There is no significant architectural distortion nor skin thickening-retraction. IMPRESSION: No radiographic evidence of malignancy. BI-RADS Category 1 - Negative Breast Density - Category C - Heterogeneously dense Breast density Category C or D implies that the patient has dense breast tissue. Dense breast tissue can make it harder to find cancer on a mammogram. Dense breast tissue is also associated with an incr eased risk of breast cancer. This information about the result of the mammogram report was provided to the patient to raise their awareness. Use this report when you speak with the patient about their risks for breast cancer, which includes their family history. At that time, you may recommend additional screening tests (Ultrasoun d or MRI) as these tests may add significant information. A negative radiographic report should not delay biopsy if a dominant or clinically suspicious mass is present. Up to ten percent of cancers are not identified on mammography. A negative report may reinforce clinical impression. Adenosis and dense breasts may obscure an underlying neoplasm. False positive reports average 6 to 10%. Patient will receive a letter notifying them of these results.
== END 2023-02-08 03:01 ==
LOC: DI 02:41
PROVIDERS: PCP Nurse Practitioner Family; Visit Provider Nurse Practitioner Family
DX: Z12.31 Encounter for screening mammogram for malignant neoplasm of breast (principal)
CPT/HCPCS: 77063; 77067

== ENCOUNTER → 2023-04-03 01:25 | Outpatient (CLI) | payer MEDICARE, BC, SELFPAY ==
--- NOTE | 2023-04-03 07:30 | DI.US_ITS ---
Exam(s) US CAROTID EXAM: US CAROTID CLINICAL HISTORY: 1 yr f/u carotid stenosis,I65.23. TECHNIQUE: Ultrasound carotids performed using grayscale, color-flow, and spectral Doppler imaging. COMPARISON: US US CAROTID from 06/21/2022 FINDINGS: RIGHT CAROTID ARTERY: Plaque: Minimal. Velocity elevation: None. LEFT CAROTID ARTERY: Plaque: Calcific plaque seen at common carotid bulb extending into proximal internal carotid artery. Similar appearance to prior. Velocity elevation: None. VERTEBRAL ARTERIES: Antegrade flow. Measurements: R Bulb: 40.6 cm/s PS / 12.4 cm/s ED R CCA: 54.4 cm/s PS / 18.9 cm/s ED R ECA: 45.1 cm/s PS / 7.3 cm/s ED R ICA Prox: 52 cm/s PS / 22.8 cm/s ED R ICA Mid: 63.2 cm/s PS / 26.6 cm/s ED R ICA Distal: 75.5 cm/s PS /28.8 cm/s ED R Vert: 25.3 cm/s PS / 11.2 cm/s ED R SVR: 1.4 R DVR: 1.5 L Bulb: 106.3 cm/s PS / 42.9 cm/s ED L CCA: 50.4 cm/s PS / 20.7 cm/s ED L ECA: 47.6 cm/s PS / 8.3 cm/s ED L ICA Prox: 98.5 cm/s PS / 34.3 cm/s ED L ICA Mid: 65.4 cm/s PS / 25 cm/s ED L ICA Distal: 58.7 cm/s PS / 25 cm/s ED L Vert: 28.1 cm/s PS / 10.7 cm/s ED L SVR: 2.05 L DVR: 1.9 IMPRESSION: Minimal plaque right common carotid all bulb and proximal internal carotid artery. No significant st enosis. Calcific plaque right common carotid bulb and proximal internal carotid artery. Less than 50 percent stenosis. Similar to prior. Criteria for Carotid Stenosis: Normal: ICA PSV <125 cm/s no plaque or intimal thickening is visible. <50% stenosis: ICA PSV <125 cm/s and plaque or intimal thickening is visible. 50-69% stenosis: ICA PSV is 125-250 cm/s and plaque is visible. >70% stenosis to near occlusion: ICA PSV >250 cm/s with visible plaque and luminal narrowing. DATA REPOSITORY:
== END ==
PROVIDERS: PCP Nurse Practitioner Family; Visit Provider Nurse Practitioner Family
DX: I65.23 Occlusion and stenosis of bilateral carotid arteries (principal)
CPT/HCPCS: 93880

== ENCOUNTER 2023-06-02 19:43 | Outpatient (REF) | payer MEDICARE, BC, SELFPAY ==
[2023-06-02 16:07] LABS: Bilirubin Negative (Negative); Blood Moderate (Negative); Clarity Sl Cloudy (Clear); Glucose Negative (Negative); Ketones Negative (Negative); Leukocyte Esterase Trace (Negative); Nitrite Negative (Negative); Specific Gravity 1.025 (1.005-1.025); Urobilinogen 0.2 mg/dL (Up to 0.2); pH 5.5 (5-8)
[2023-06-02 16:25] LABS: Epithelial Cells Few HPF (Negative)
[2023-06-02 16:26] LABS: Bacteria Few HPF (Negative); C & S Indicated? Yes; Casts Negative LPF (Negative); Crystals Negative HPF (Negative); Mucus Negative (Negative)
== END 2023-06-02 19:44 | disposition home or self-care (01) ==
LOC: LBN 19:43
PROVIDERS: PCP Nurse Practitioner Family; Visit Provider Family Medicine
DX: R31.29 Other microscopic hematuria (principal)
CPT/HCPCS: 87077; 81003; 81015; 87086; 87186

== ENCOUNTER 2023-06-26 15:50 | Outpatient (REF) | payer MEDICARE, BC, SELFPAY ==
[2023-06-26 18:49] LABS: Bilirubin Negative (Negative); Blood Moderate (Negative); Clarity Clear (Clear); Glucose Negative (Negative); Ketones Negative (Negative); Leukocyte Esterase Trace (Negative); Nitrite Negative (Negative); Specific Gravity 1.025 (1.005-1.025); Urobilinogen 0.2 mg/dL (Up to 0.2); pH 5.5 (5-8)
[2023-06-26 18:59] LABS: Bacteria Moderate HPF (Negative); C & S Indicated? Yes; Casts Negative LPF (Negative); Crystals Negative HPF (Negative); Epithelial Cells Rare HPF (Negative); Mucus Negative (Negative); Other Cells Rare Transitional (Negative)
== END 2023-06-26 15:51 | disposition home or self-care (01) ==
LOC: LBO 15:50
PROVIDERS: PCP Nurse Practitioner Family; Visit Provider Nurse Practitioner Adult Health
DX: R31.29 Other microscopic hematuria (principal)
CPT/HCPCS: 87077; 81003; 81015; 87086; 87186

== ENCOUNTER → 2023-07-24 19:32 | Outpatient (CLI) | payer MEDICARE, BC, SELFPAY ==
--- NOTE | 2023-07-24 10:30 | DI.RAD_ITS ---
Exam(s) XR WRIST LT COMPLETE EXAM: XR WRIST LT COMPLETE CLINICAL HISTORY: WRIST PAIN,W19.XXXA Unspecified fall,initial encounter. TECHNIQUE: 2D digital imaging was performed of the left wrist. Three images were obtained. PA, obl ique and lateral views were obtained. COMPARISON: No exams were available for comparison FINDINGS: BONES: There is an acute transverse fracture through the distal metaphysis of the left radius with mi ld volar angulation. No bony destructive lesion is seen. JOINTS: The carpal bones are normally aligned. There are marked degenerative changes seen at the 1st CMC joint characterized by joint space narrowing and osteophytes. SOFT TISSUE: Soft tissue swelling of the wrist is noted. IMPRESSION: Acute fracture through the distal metaphysis of the left radius with volar angulation. DATA REPOSITORY: RADIATION DOSE DELIVERED:
--- NOTE | 2023-07-24 10:30 | DI.RAD_ITS ---
Exam(s) XR KNEE LT 3V AP,LAT,SUSANNAH EXAM: XR KNEE LT 3V AP,LAT,SUSANNAH CLINICAL HISTORY: trauma and fall W19.XXXA Unspecified fall,initial encounter. TECHNIQUE: 2D digital imaging was performed of the left knee. Three images were obtained. AP, late ral and PA tunnel views were obtained. COMPARISON: No priors for comparison. FINDINGS: BONES: No acute fracture is present. No bony destructive lesion is seen. There is an enthesophyte at the superior patella. JOINTS: The knee is normally aligned. No joint effusion is seen. No loose body. SOFT TISSUE: Normal. IMPRESSION: No acute fracture or dislocation. DATA REPOSITORY: RADIATION DOSE DELIVERED:
== END ==
PROVIDERS: PCP Nurse Practitioner Adult Health; Visit Provider Emergency Medicine
DX: W19.XXXA Unspecified fall, initial encounter (principal); S52.325A Nondisplaced transverse fracture of shaft of left radius, initial encounter for closed fracture; X58.XXXA Exposure to other specified factors, initial encounter
CPT/HCPCS: 73562; 73110

== ENCOUNTER 2023-07-31 16:05 | Outpatient (CLI) | payer MEDICARE, BC, SELFPAY ==
--- NOTE | 2023-07-31 13:30 | DI.RAD_ITS ---
Exam(s) XR WRIST LT COMPLETE EXAM: XR WRIST LT COMPLETE CLINICAL HISTORY: F/U L DISTAL RADIUS FX. TECHNIQUE: 2D digital imaging was performed. Three views. COMPARISON: CR XR WRIST LT COMPLETE from 07/24/2023 FINDINGS: There has been no change in the alignment of the distal radial fracture. No new abnormalities are se en. DATA REPOSITORY: RADIATION DOSE DELIVERED:
== END 2023-07-31 16:06 | disposition home or self-care (01) ==
LOC: DIORS 16:06
PROVIDERS: PCP Nurse Practitioner Adult Health; Visit Provider Student in an Organized Health Care Education/Training Program
DX: S52.532D Colles' fracture of left radius, subsequent encounter for closed fracture with routine healing; X58.XXXD Exposure to other specified factors, subsequent encounter
CPT/HCPCS: 99213; 73110

== ENCOUNTER 2023-08-24 13:54 | Outpatient (CLI) | payer MEDICARE, BC, SELFPAY ==
--- NOTE | 2023-08-24 13:00 | DI.RAD_ITS ---
Exam(s) XR WRIST LT COMPLETE EXAM: XR WRIST LT COMPLETE CLINICAL HISTORY: F/U L RADIUS FX. TECHNIQUE: 2D digital imaging was performed. Four views. COMPARISON: CR XR WRIST LT COMPLETE from 07/31/2023 FINDINGS: BONES: There has been no change in the alignment of the distal radial fracture. No new abnormalities are seen. No bony destructive lesion is seen. JOINTS: The carpal bones are normally aligned. Degenerative changes 1st carpal metacarpal joint. SOFT TISSUE: Normal. IMPRESSION: Stable alignment of distal radial fracture. DATA REPOSITORY: RADIATION DOSE DELIVERED:
== END 2023-08-24 13:55 | disposition home or self-care (01) ==
LOC: DIORS 13:54
PROVIDERS: PCP Nurse Practitioner Adult Health; Referring Provider Nurse Practitioner Adult Health; Visit Provider Physician Assistant
DX: S52.532D Colles' fracture of left radius, subsequent encounter for closed fracture with routine healing (principal); X58.XXXD Exposure to other specified factors, subsequent encounter; M18.12 Unilateral primary osteoarthritis of first carpometacarpal joint, left hand
CPT/HCPCS: 99213; 73110

== ENCOUNTER 2023-10-30 14:37 | Outpatient (CLI) | payer MEDICARE, BC, SELFPAY ==
[2023-10-30 09:26] LABS: Calculated LDL 70 mg/dL (<100); Cholesterol 166 mg/dL (<200); HDL Cholesterol 81 mg/dL (40-60); TSH 0.18 uIU/Ml (0.36-3.74); Triglyceride 79 mg/dL (<150)
[2023-11-01 11:06] LABS: Lab Add On Test DONE
[2023-11-01 11:49] LABS: FREE T4 1.29 ng/dL (0.76-1.46)
[2023-11-01 15:05] LABS: Bilirubin Negative (Negative); Blood Small (Negative); Clarity Clear (Clear); Glucose Negative (Negative); Ketones Negative (Negative); Leukocyte Esterase Small (Negative); Nitrite Negative (Negative)
[2023-11-01 15:13] LABS: Anion Gap 13.8 mmol/L (3-11); BUN 18 mg/dL (7-18); CO2 24.2 mmol/L (21.0-32.0); CREATININE 0.9 mg/dL (0.55-1.02); Calcium 9.2 mg/dL (8.5-10.1); Chloride 105 mmol/L (98-107); Estimated GFR 65.44 (mL/min/1.73m2); Glucose 84 mg/dL (74-106); Potassium 4.5 mmol/L (3.5-5.1); Sodium 143 mmol/L (136-145)
[2023-11-01 15:15] LABS: Bacteria Few HPF (Negative); C & S Indicated? No; Casts Negative LPF (Negative); Crystals Negative HPF (Negative); Epithelial Cells Few HPF (Negative); Mucus Trace (Negative); WBC 0-2 HPF (0-5)
[2023-11-01 16:18] LABS: Lab Add On Test DONE
== END 2023-10-30 14:38 | disposition home or self-care (01) ==
PROVIDERS: PCP Nurse Practitioner Adult Health; Visit Provider Family Medicine
DX: E03.9 Hypothyroidism, unspecified (principal); E78.5 Hyperlipidemia, unspecified; R79.89 Other specified abnormal findings of blood chemistry
CPT/HCPCS: 36415; 80048; 80061; 84439; 84443

== ENCOUNTER 2023-11-01 15:12 | Outpatient (REF) | payer MEDICARE, BC, SELFPAY | END 2023-11-01 15:13 | disposition home or self-care (01) | LOC: LBN 15:12 | PROVIDERS: PCP Nurse Practitioner Adult Health; Referring Provider Nurse Practitioner Adult Health; Visit Provider Nurse Practitioner Adult Health | DX: R31.29 Other microscopic hematuria (principal) | CPT/HCPCS: 81003; 81015 ==

== ENCOUNTER 2024-01-10 16:10 | Outpatient (REF) | payer MEDICARE, BC, SELFPAY | END 2024-01-10 16:11 | disposition home or self-care (01) | LOC: LBN 16:10 | PROVIDERS: PCP Nurse Practitioner Adult Health; Visit Provider Nurse Practitioner | DX: R30.0 Dysuria (principal); B96.20 Unspecified Escherichia coli [E. coli] as the cause of diseases classified elsewhere | CPT/HCPCS: 87077; 87086; 87186 ==

== ENCOUNTER 2024-06-04 14:42 | Outpatient (REF) | payer MEDICARE, BC, SELFPAY | END 2024-06-04 14:43 | disposition home or self-care (01) | LOC: LBN 14:42 | PROVIDERS: PCP Nurse Practitioner Adult Health; Visit Provider Nurse Practitioner | DX: R30.0 Dysuria (principal); B96.29 Other Escherichia coli [E. coli] as the cause of diseases classified elsewhere | CPT/HCPCS: 87077; 87086; 87186 ==

== ENCOUNTER 2024-07-04 15:17 | Outpatient (REF) | payer MEDICARE, BC, SELFPAY ==
[2024-07-04 19:35] LABS: Bilirubin Negative (Negative); Blood Moderate (Negative); Clarity Clear (Clear); Glucose Negative (Negative); Ketones Negative (Negative); Leukocyte Esterase Trace (Negative); Nitrite Negative (Negative); Urobilinogen 0.2 mg/dL (Up to 0.2); pH 5.5 (5-8)
[2024-07-04 19:45] LABS: Bacteria Rare HPF (Negative); C & S Indicated? No/Sq. Contamination; Casts Negative LPF (Negative); Crystals Negative HPF (Negative); Epithelial Cells Moderate HPF (Negative); Mucus Negative (Negative); Other Cells Rare Transitional (Negative)
== END 2024-07-04 15:18 | disposition home or self-care (01) ==
LOC: LBN 15:17
PROVIDERS: PCP Nurse Practitioner Adult Health; Visit Provider Nurse Practitioner Adult Health
DX: R31.29 Other microscopic hematuria (principal); R30.0 Dysuria; E03.9 Hypothyroidism, unspecified; Z12.39 Encounter for other screening for malignant neoplasm of breast; E78.5 Hyperlipidemia, unspecified; Z13.1 Encounter for screening for diabetes mellitus; G43.909 Migraine, unspecified, not intractable, without status migrainosus; N39.0 Urinary tract infection, site not specified
CPT/HCPCS: 81003; 81015

== ENCOUNTER 2025-02-10 00:04 | Outpatient (CLI) | payer MEDICARE, BC, SELFPAY ==
--- NOTE | 2025-02-10 07:09 | DI.MAMMO_ITS ---
Exam(s) MAMMO SCREENING EXAM: MAMMO SCREENING CLINICAL HISTORY: screening,z12.39 TECHNIQUE: Bilateral full field digital CC and MLO mammographic images were obtained with 3D tomosynthesis and utilizing computer aided detection (CAD). COMPARISON: Comparison is made with prior examinations. FINDINGS: Masses/Architectural Distortion: No suspicious masses or areas of architectural distortion are present. Microcalcifications: No suspicious pleomorphic-type are seen. Skin Thickening/Nipple Retraction: None. IMPRESSION: 1. No significant interval change with no specific features of malignancy noted. 2. Unless there is more urgent need, screening mammography is recommended, as per [employer] guidelines. BI-RADS Category 1 - Negative Breast Density - Category C - The breast are heterogeneously dense, which may obscure small masses. Breast density Category C or D implies that the patient has dense breast tissue. Dense breast tissue can make it harder to find cancer on a mammogram. Dense breast tissue is also associated with an increased risk of breast cancer. This information about the result of the mammogram report was provided to the patient to raise their awareness. Use this report when you speak with the patient about their risks for breast cancer, which includes their family history. At that time, you may recommend additional screening tests (Ultrasound or MRI) as these tests may add significant information. A negative radiographic report should not delay biopsy if a dominant or clinically suspicious mass is present. Up to ten percent of cancers are not identified on mammography. A negative report may reinforce clinical impression. Adenosis and dense breasts may obscure an underlying neoplasm. False positive reports average 6 to 10%. Patient will receive a letter notifying them of these results.
== END 2025-02-10 00:24 ==
LOC: DI 00:04
PROVIDERS: PCP Nurse Practitioner Adult Health; Visit Provider Nurse Practitioner Adult Health
DX: Z12.31 Encounter for screening mammogram for malignant neoplasm of breast (principal)
CPT/HCPCS: 77063; 77067

== ENCOUNTER 2025-07-01 01:20 | Outpatient (CLI) | payer MEDICARE, BC, SELFPAY ==
[2025-07-01 09:00] LABS: Anion Gap 7.3 mmol/L (3-11); BUN 22 mg/dL (7-18); CO2 29.7 mmol/L (21.0-32.0); Calcium 9.1 mg/dL (8.5-10.1); Chloride 105 mmol/L (98-107); Cholesterol 153 mg/dL (<200); Glucose 92 mg/dL (74-106); HDL Cholesterol 90 mg/dL (>or=50); Potassium 4.5 mmol/L (3.5-5.1); Sodium 142 mmol/L (136-145); TSH (W/Ref FT4) 0.09 uIU/mL (0.36-3.74)
== END 2025-07-01 01:21 | disposition home or self-care (01) ==
LOC: LBO 01:20
PROVIDERS: PCP Nurse Practitioner Adult Health; Referring Provider Nurse Practitioner Adult Health; Visit Provider Nurse Practitioner Adult Health
DX: E78.5 Hyperlipidemia, unspecified (principal); E03.9 Hypothyroidism, unspecified; Z13.1 Encounter for screening for diabetes mellitus
CPT/HCPCS: 36415; 80048; 80061; 84439; 84443